=== PATIENT | male | born 1940 | race Caucasian/White ===

== ENCOUNTER 2019-01-02 10:22 | Inpatient (IN) ==
[2019-01-02] MEDS ORDERED: levETIRAcetam 1,500 MG in DEXTROSE 5% 100 ML IV STA (10:34)
[2019-01-02] MEDS ORDERED: SODIUM CHLORIDE 0.9% 1000ML 1,000 ML IV SCH (10:45)
[2019-01-02 10:50] LABS: Basophils # (auto) 0.03 K/uL (0-0.2); Basophils % (auto) 0.6 %; Hematocrit (blood only) 36.5 % (42-52); Hemoglobin 13.1 g/dL (14.0-18.0); Immature Granulocytes # (auto) 0.01 K/uL (0.00-0.02); Immature Granulocytes % (auto) 0.2 %; Lymphocytes # (auto) 0.41 K/uL (1.2-3.4); Lymphocytes % (auto) 8.3 %; Mean Corpuscular Hemoglobin 37.1 pg (25-34); Mean Corpuscular Hgb Conc 35.9 g/dL (32-36); Mean Corpuscular Volume 103.4 fL (80-100); Mean Platelet Volume 8.3 fL (7.4-10.4); Monocytes # (auto) 0.37 K/uL (0.11-0.59); Monocytes % (auto) 7.5 %; Neutrophils # (auto) 4.02 K/uL (1.4-6.5); Neutrophils % (auto) 81.4 %; Platelet Count 192 K/uL (130-400); RDW Coefficient of Variation 11.8 % (11.5-14.5); RDW Standard Deviation 44.3 fL (36.4-46.3); Red Blood Count 3.53 M/uL (4.7-6.1); White Blood Count 4.94 K/uL (4.8-10.8)
[2019-01-02] MEDS ORDERED: DEXAMETHASONE **PF** INJ 10 MG/ML VIAL IV ONE (11:08)
[2019-01-02 11:17] LABS: Alanine Aminotransferase 24 U/L (12-78); Aspartate Aminotransferase 14 U/L (15-37); BUN Creatinine Ratio 11.8 (10-20); Blood Urea Nitrogen 25 mg/dl (7-18); Calcium 9.4 mg/dl (8.5-10.1); Carbon Dioxide 24 mmol/L (21-32); Chloride 109 mmol/L (98-107); Est GFR (African American) 33.6; Glucose 149 mg/dl (70-99); Magnesium 2.1 mg/dl (1.8-2.4); Potassium 4.1 mmol/L (3.5-5.1); Sodium 142 mmol/L (136-145)
[2019-01-02 11:21] LABS: Albumin Globulin Ratio 1.1 (0.9-2); Alkaline Phosphatase 114 U/L (45-117); Bilirubin,Total 0.4 mg/dl (0.2-1); Creatine Kinase 53 U/L (39-308); Globulin 3.5 gm/dl (2.5-4.0); Total Protein 7.5 gm/dl (6.4-8.2)
--- NOTE | 2019-01-02 11:26 | CT Scan Report ---
CT head/brain wo con CLINICAL HISTORY: 78 years-old Male with Seizure w/ mass recent gamma ray. Acute seizure with report ed brain tumor. TECHNIQUE: Multiple axial CT images of the head were obtained without contrast. A dose lowering tech nique was utilized adhering to the principles of ALARA. CT DOSE: 537.48 mGy.cm COMPARISON: None. FINDINGS: No acute intracranial hemorrhage or midline shift. Age-related involutional changes with mild patchy white matter hypodensities suggestive of chronic microvascular ischemic disease. No hydrocephalus. Ce rebral vascular calcifications are noted. No acute territorial infarction identified. Postoperative c hanges from prior right temporal parietal craniotomy with 3 mm extra-axial collection adjacent to the operative bed which is likely on a postsurgical basis. Encephalomalacia is noted within the right pa rietal lobe. Ill-defined subtle hypodensities of the left cerebellar hemisphere may be on an artifact ual basis. No acute calvarial fracture. Mastoid air cells are clear. Paranasal sinuses are also generally clear. No suspicious bone lesions. The soft tissues and orbits appear unremarkable. IMPRESSION: 1. No acute intracranial hemorrhage or midline shift. 2. Postoperative changes from prior right temporoparietal craniotomy with encephalomalacia within the right parietal lobe, likely the site of prior resection. No definite intra-axial mass identified on this noncontrast study. 3. 3 mm extra-axial low attenuating collection adjacent to the operative bed is likely on a postopera tive basis. Correlate with prior imaging. The above report was generated using voice recognition software. It may contain grammatical, syntax o r spelling errors. Electronically signed by: Jeferson Callahan M.D. 01/02/2019 11:24 AM
[2019-01-02 13:18] LABS: Appearance Urine Clear (Clear); Bilirubin Urine Negative (Negative); Blood Urine Negative (Negative); Color Urine Yellow; Glucose Urine UA Negative (Negative); Ketones Urine Negative (Negative); Leukocyte Esterase Urine Negative (Negative); Nitrite Urine Negative (Negative); Protein Urine Negative (Negative); Specific Gravity Urine 1.009 (1.000-1.030); Urobilinogen Urine Negative (Negative)
--- NOTE | 2019-01-02 13:20 | History & Physical Report ---
Date of Service January 02, 2019 Assessment & Plan (1) Focal seizure: Pt received ativan 2mg x3 without success, seizure ultimately resolved s/p keppra dosing Improving slowly, which is c/w additional medication use per family ED physician spoke with pt's neuro-onc in [place] who recs for decadron 4mg BID[address] Dr. Bright who recs for keppra 750mg BID. does note that pt was on keppra initially but it made him very fatigued and he was titrated to lamictal, which he has had better success with. Seizure precautions, ativan PRN UA, utox pending CBC, PRP WNL (2) Glioblastoma: Bactrim prophylaxis use Finished chemo 10/2018 Recent gamma knife surgery, roughly 6 weeks ago (3) CKD (chronic kidney disease): Baseline cr 1.9-2.0 Cr 2.0 on admission (4) CAD (coronary artery disease): Hx of stents Aspirin 81mg (5) Hyperlipidemia: continue home meds (6) HTN (hypertension): continue home meds (7) DVT prophylaxis: Heparin for DVT proph History of Present Illness Primary Care Provider: MARGARITA PCP 78 y/o M who was brought to the ED by EMS for uncontrolled seizures. Pt is in town from [place], [place] visiting his son who lives in [place]. He and his flew here last Friday and have been staying in a hotel. He had been doing fine without any issues until later this morning when he started to note that as he was eating he was drooling out of the L side of his mouth. He then noted that his L UE/LE were tremoring. He called to his and shortly after had a full seizure. Pt had recent gamma knife surgery about 6 weeks ago for GBM. He has had issues with seizures since that time, but has been stable on lamictal. Due to this, pt has been prescribed PRN ativan. His gave him a 2mg dose and called EMS. This did not break his seizure. EMS gave him 2mg ativan x2 without breaking of seizure activity. Once at [facility], pt was given keppra and has had no further seizures. and son are present and state that he is much better than he was during the seizure, but that his speech is still slurred and slow compared with his usual. He is also still having an issue making a fist, but better than earlier. Prior to this episode today he had no issues. He had showered and gone about his usual morning without problem. states that since the surgery he has some L sided balance issues at baseline and this was no worse this AM prior to the seizures. Pt denies fever, SOB, chest pain, abd pain, n/v/c/d, LE pain or swelling. Family states he has been slow to return to baseline with ativan and keppra in the past and his current presentation is c/w these medications. ED physician spoke with pt's neuro-onc in [place] who recs for decadron 4mg BID. He also spoke with Dr. Bright who recs for keppra 750mg BID. does note that pt was on keppra initially but it made him very fatigued and he was titrated over to lamictal, which he has had better success with. Allergies Allergy/AdvReac Type Severity Reaction Status Date / Time No Known Allergies Allergy Unverified 01/02/19 11:20 Home Medications Home Medications Medication Instructions Recorded Confirmed Type Bifidobacterium infantis [Align] 4 mg PO QAM 01/02/19 01/02/19 History amlodipine 5 mg PO QAM 01/02/19 01/02/19 History aspirin 81 mg PO QAM 01/02/19 01/02/19 History lamotrigine [Lamictal] 100 mg PO BID 01/02/19 01/02/19 History lorazepam [Ativan] 1 - 2 mg PO DAILY PRN 01/02/19 01/02/19 History multivitamin 1 tab PO QAM 01/02/19 01/02/19 History rosuvastatin 10 mg PO QAM 01/02/19 01/02/19 History sulfamethoxazole-trimethoprim 1 tab PO HS 01/02/19 01/02/19 History [Bactrim] Past Med/Surg History Medical History Brain tumor (Acute) Surgical History No significant past surgical history Family History Brother Myocardial infarction Other No pertinent family history Social History Preferred Language: Portuguese marital status: Current Living Situation: Spouse current occupational status: 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 Feels Safe at Home: Yes Smoking Status: Never smoker Hx Alcohol Use: No Hx Substance Use: No Review of Systems Review of Systems: Pertinent positives and negatives reviewed in HPI--all others negative Physical Exam Constitutional: WD/WN, vitals as above Eyes: normal visual mchugh by confrontation and + anicteric sclerae Neck: normal visual inspection and trachea midline Respiratory: normal respiratory effort, lungs clear to auscultation Cardiovascular: Rate/Rhythm: regular rate and regular rhythm Gastrointestinal (Abdomen): Inspection/Auscultation: abdomen not distended Percussion/Palpation: abdomen soft; abdomen nontender Musculoskeletal: Head/Neck/Chest: normocephalic and head atraumatic negative for edema, peripheral pulses intact Skin: no rashes, warm and dry Neurologic: awake; not confused Speech / Cognition: + abnormal speech (slightly slurred and slow to respond at times) Answers are appropriate Psychiatric: Orientation: oriented x 3 and cooperative Affect: + blunted affect Results & Data Vital Signs (Past 12 Hours) Vital Signs Pulse Pulse Resp BP BP Pulse Ox 01/02/19 12:49 87 16 176/90 H 94 01/02/19 11:30 86 21 150/98 H 96 01/02/19 11:20 83 16 93 01/02/19 11:16 88 17 144/90 H 94 01/02/19 11:15 80 13 91 01/02/19 11:00 85 13 94 01/02/19 10:50 85 12 92 01/02/19 10:40 92 H 17 92 01/02/19 10:38 87 16 93 01/02/19 10:37 91 H 20 123/75 94 01/02/19 10:34 91 H 20 94 01/02/19 10:30 89 15 133/[address] head: changes c/w recent post-op status Code Status & VTE Plan Code Status Full code VTE Prophylaxis Plan VTE Prophylaxis will be ordered: Yes PG Care Time/CCT Total # of Minutes Spent Total Time Spent with Patient: Total time spent is greater than 50% in coordination of care (as documented) at patient's floor/unit and/or counseling patient:
--- NOTE | 2019-01-02 13:43 | Emergency Department Note ---
Entered by Summer Munroe acting as a scribe for Aakash Messer DO History of Present Illness General Chief complaint: Seizure Stated complaint: seizure Source: family ( and son) History of Present Illness Onset (ago): hour(s) (0800 this morning) Location: head and left (face, eye, arm) Pain Consistency: + other (episode (20 minutes)) Quality: + other (seizure) Associated symptoms: + other (Positive left face, eye, and arm twitching. Negative abdominal pain, recent falls. ); no chest pain The patient is a 78 year old male who presents to the ED with complaints of a seizure beginning at 0800 this morning. 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 His states this morning he had just taken a shower and was sitting down drinking water. She states around 0800, his left face and eye began twitching followed by his left arm twitching. His states this episode lasted about 20 minutes. His notes that 1 month ago he had a gamma ray treatment for regrowth. She reports he had 1 seizure like this before the gamma ray as well as a few other small, controlled seizures. She states he takes lamictal. Pt denies any chest pain, shortness of breath, belly pain, head pain, abdominal pain, recent falls. Home Medications Home Medications Medication Instructions Recorded Confirmed Type Bifidobacterium infantis [Align] 4 mg PO QAM 01/02/19 01/02/19 History amlodipine 5 mg PO QAM 01/02/19 01/02/19 History aspirin 81 mg PO QAM 01/02/19 01/02/19 History lamotrigine [Lamictal] 100 mg PO BID 01/02/19 01/02/19 History lorazepam [Ativan] 1 - 2 mg PO DAILY PRN 01/02/19 01/02/19 History multivitamin 1 tab PO QAM 01/02/19 01/02/19 History rosuvastatin 10 mg PO QAM 01/02/19 01/02/19 History sulfamethoxazole-trimethoprim 1 tab PO HS 01/02/19 01/02/19 History [Bactrim] Allergies Allergy/AdvReac Type Severity Reaction Status Date / Time No Known Allergies Allergy Unverified 01/02/19 11:20 Past Med/Surg History Medical History Brain tumor (Acute) Surgical History No significant past surgical history Family History Brother Myocardial infarction Other No pertinent family history Social History Preferred Language: [place] marital status: Current Living Situation: Spouse 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 and A total of 10 systems reviewed and were otherwise negative Physical Exam Vital Signs Vital Signs - 24 hr 01/02/19 10:30 01/02/19 10:34 01/02/19 10:37 Sepsis Recent Fever Within 48 Hours No Sepsis New/Unexplained Change in Mental Status No Sepsis Action Taken by Nursing No Action Required Pulse Rate 89 91 H 91 H Pulse Rate [Left Finger] Pulse Rate from SpO2 Sensor 89 Pulse Rhythm Regular Regular Pulse Strength Normal Respiratory Rate 15 20 20 Respiratory Effort / Characteristics Non-Labored Spontaneous Respiratory Depth Normal Respiratory Pattern Regular Blood Pressure 133/83 123/75 Blood Pressure [Left Arm] Blood Pressure Mean 99 91 Blood Pressure Mean [Left Arm] Blood Pressure Position Sitting Pulse Oximetry 92 94 94 Oxygen Delivery Method Room Air Room Air 01/02/19 10:38 01/02/19 10:40 01/02/19 10:50 Sepsis Recent Fever Within 48 Hours Sepsis New/Unexplained Change in Mental Status Sepsis Action Taken by Nursing Pulse Rate 87 92 H 85 Pulse Rate [Left Finger] Pulse Rate from SpO2 Sensor 87 93 H 85 Pulse Rhythm Pulse Strength Respiratory Rate 16 17 12 Respiratory Effort / Characteristics Respiratory Depth Respiratory Pattern Blood Pressure Blood Pressure [Left Arm] Blood Pressure Mean Blood Pressure Mean [Left Arm] Blood Pressure Position Pulse Oximetry 93 92 92 Oxygen Delivery Method 01/02/19 11:00 01/02/19 11:15 01/02/19 11:16 Sepsis Recent Fever Within 48 Hours Sepsis New/Unexplained Change in Mental Status Sepsis Action Taken by Nursing Pulse Rate 85 80 88 Pulse Rate [Left Finger] Pulse Rate from SpO2 Sensor 82 84 87 Pulse Rhythm Pulse Strength Respiratory Rate 13 13 17 Respiratory Effort / Characteristics Respiratory Depth Respiratory Pattern Blood Pressure 144/90 H Blood Pressure [Left Arm] Blood Pressure Mean 108 Blood Pressure Mean [Left Arm] Blood Pressure Position Pulse Oximetry 94 91 94 Oxygen Delivery Method 01/02/19 11:20 01/02/19 11:30 01/02/19 11:40 Sepsis Recent Fever Within 48 Hours Sepsis New/Unexplained Change in Mental Status Sepsis Action Taken by Nursing Pulse Rate 83 86 83 Pulse Rate [Left Finger] Pulse Rate from SpO2 Sensor 83 85 86 Pulse Rhythm Pulse Strength Respiratory Rate 16 21 18 Respiratory Effort / Characteristics Respiratory Depth Respiratory Pattern Blood Pressure 150/98 H Blood Pressure [Left Arm] Blood Pressure Mean 115 Blood Pressure Mean [Left Arm] Blood Pressure Position Pulse Oximetry 93 96 95 Oxygen Delivery Method 01/02/19 11:50 01/02/19 12:00 01/02/19 12:10 Sepsis Recent Fever Within 48 Hours Sepsis New/Unexplained Change in Mental Status Sepsis Action Taken by Nursing Pulse Rate 80 84 79 Pulse Rate [Left Finger] Pulse Rate from SpO2 Sensor 80 85 78 Pulse Rhythm Pulse Strength Respiratory Rate 16 13 20 Respiratory Effort / Characteristics Respiratory Depth Respiratory Pattern Blood Pressure 146/91 H Blood Pressure [Left Arm] Blood Pressure Mean 109 Blood Pressure Mean [Left Arm] Blood Pressure Position Pulse Oximetry 94 94 93 Oxygen Delivery Method 01/02/19 12:20 01/02/19 12:30 01/02/19 12:40 Sepsis Recent Fever Within 48 Hours Sepsis New/Unexplained Change in Mental Status Sepsis Action Taken by Nursing Pulse Rate 85 89 90 Pulse Rate [Left Finger] Pulse Rate from SpO2 Sensor 86 95 H 90 Pulse Rhythm Pulse Strength Respiratory Rate 16 19 20 Respiratory Effort / Characteristics Respiratory Depth Respiratory Pattern Blood Pressure 176/90 H Blood Pressure [Left Arm] Blood Pressure Mean 118 Blood Pressure Mean [Left Arm] Blood Pressure Position Pulse Oximetry 97 93 95 Oxygen Delivery Method 01/02/19 12:49 01/02/19 12:50 01/02/19 13:03 Sepsis Recent Fever Within 48 Hours Sepsis New/Unexplained Change in Mental Status Sepsis Action Taken by Nursing Pulse Rate 89 94 H Pulse Rate [Left Finger] 87 Pulse Rate from SpO2 Sensor 89 Pulse Rhythm Pulse Strength Respiratory Rate 16 14 16 Respiratory Effort / Characteristics Respiratory Depth Respiratory Pattern Blood Pressure Blood Pressure [Left Arm] 176/90 H Blood Pressure Mean Blood Pressure Mean [Left Arm] 118 Blood Pressure Position Pulse Oximetry 94 94 Oxygen Delivery Method Room Air 01/02/19 13:07 01/02/19 13:10 01/02/19 13:20 Sepsis Recent Fever Within 48 Hours Sepsis New/Unexplained Change in Mental Status Sepsis Action Taken by Nursing Pulse Rate 88 91 H 89 Pulse Rate [Left Finger] Pulse Rate from SpO2 Sensor 88 91 H 89 Pulse Rhythm Pulse Strength Respiratory Rate 12 16 11 L Respiratory Effort / Characteristics Respiratory Depth Respiratory Pattern Blood Pressure 162/87 H Blood Pressure [Left Arm] Blood Pressure Mean 112 Blood Pressure Mean [Left Arm] Blood Pressure Position Pulse Oximetry 95 98 96 Oxygen Delivery Method 01/02/19 13:30 01/02/19 13:40 Sepsis Recent Fever Within 48 Hours Sepsis New/Unexplained Change in Mental Status Sepsis Action Taken by Nursing Pulse Rate 94 H 96 H Pulse Rate [Left Finger] Pulse Rate from SpO2 Sensor 94 H 96 H Pulse Rhythm Pulse Strength Respiratory Rate 17 21 Respiratory Effort / Characteristics Respiratory Depth Respiratory Pattern Blood Pressure 165/106 H Blood Pressure [Left Arm] Blood Pressure Mean 125 Blood Pressure Mean [Left Arm] Blood Pressure Position Pulse Oximetry 95 93 Oxygen Delivery Method GENERAL: Sitting up in bed. Intermittent shaking/twitching of the left jaw. Able to mumble answers. EYE EXAM: normal conjunctiva, PERRL and EOM's grossly intact. Pupils 2 mm and r eactive with bilateral nystagmus. OROPHARYNX: Bite morel on right cheek and left distal tongue. NECK: supple, no nuchal rigidity, no adenopathy, non-tender LUNGS: Clear to auscultation. Normal chest wall mechanics HEART: no murmurs, S1 normal and S2 normal ABDOMEN: abdomen soft, non-tender, normo-active bowel sounds, no masses, no rebound or guarding. BACK: Back is symmetrical on inspection and there is no deformity, no midline tenderness, no CVA tenderness. SKIN: no rashes and no bruising UPPER EXTREMITIES: upper extremities are grossly normal. Left elbow with a fair amount of swelling. No surrounding erythema LOWER EXTREMITIES: No pitting edema. NEURO EXAM: Awake, alert, mumbling, moving all extremities but the LUE. With intermittent garbled speech Course ED COURSE: Vital signs were reviewed and showed hypertensive The patients medical record was reviewed The above diagnostic studies were performed and reviewed. ED treatments and interventions as stated above. 1028: The patient was evaluated in room A11. A complete history and physical examination was performed. 1103: I updated the nurse to take the patient to Ct. She states she was holding until the Kepra was done. 1215: Discussed the patient's case with Dr. Kriss Harden [facility] Hospitalist. The patient will be evaluated for further management. 1155: Upon reevaluation, the patient is doing slightly better. I discussed my findings with the patient and his family and they understand and agree with the treatment plan. Based on the patients age, coexisting illnesses, exam and lab findings the decision to treat as an inpatient was made. The patient remained stable while under my care. The patient will be evaluated for further management. Administered Medications Discontinued Medications Dexamethasone Sodium Phosphate (Decadron Pf) 4 mg IV NOW ONE Stop: 01/02/19 11:09 Last Admin: 01/02/19 11:28 Dose: 4 mg Documented by: [id number] Levetiracetam 1,500 mg/ (Dextrose) 115 mls @ 440 mls/hr IV NOW STA Stop: 01/02/19 10:48 Last Infusion: 01/02/19 11:15 Dose: 0 mls/hr Documented by: [id number] Admin: 01/02/19 10:55 Dose: 440 mls/hr Documented by: [id number] Sodium Chloride (Nss 1000ml) 1,000 mls @ 999 mls/hr IV .Q1H1M NAI Stop: 01/02/19 11:45 Last Infusion: 01/02/19 12:00 Dose: 0 mls/hr Documented by: [id number] Admin: 01/02/19 10:55 Dose: 999 mls/hr Documented by: [id number] Medical Decision Making Differential Diagnosis Differential Diagnosis includes but is not limited to ischemic Stroke, hemorrhagic stroke, bells palsy, mass, neoplasm, migraine headache, seizure, subarachnoid hemorrhage, TIA, and transient global amnesia. Medical Records Attestation: I reviewed the patient's medical records. Home Medications Current Medication List: was personally reviewed by me Laboratory Data Attestation: I reviewed the patient's lab results. Result diagrams: 01/02/19 10:39 01/02/19 10:39 Lab Results 01/02/19 01/02/19 01/02/19 Range/Units 10:39 10:39 13:00 WBC 4.94 (4.8-10.8) K/uL RBC 3.53 L (4.7-6.1) M/uL Hgb 13.1 L (14.0-18.0) g/dL Hct 36.5 L (42-52) % MCV 103.4 H (80-100) fL MCH 37.1 H (25-34) pg MCHC 35.9 (32-36) g/dL RDW Std Deviation 44.3 (36.4-46.3) fL RDW Coeff of Shania 11.8 (11.5-14.5) % Plt Count 192 (130-400) K/uL MPV 8.3 (7.4-10.4) fL Immature Gran % (Auto) 0.2 % Neut % (Auto) 81.4 % Lymph % (Auto) 8.3 % Gilchrist % (Auto) 7.5 % Eos % (Auto) 2.0 % Baso % (Auto) 0.6 % Immature Gran # (Auto) 0.01 (0.00-0.02) K/uL Neut # (Auto) 4.02 (1.4-6.5) K/uL Lymph # (Auto) 0.41 L (1.2-3.4) K/uL Gilchrist # (Auto) 0.37 (0.11-0.59) K/uL Eos # (Auto) 0.10 (0-0.5) K/uL Baso # (Auto) 0.03 (0-0.2) K/uL Sodium 142 (136-145) mmol/L Potassium 4.1 (3.5-5.1) mmol/L Chloride 109 H (98-107) mmol/L Carbon Dioxide 24 (21-32) mmol/L Anion Gap 9.0 (3-11) BUN 25 H (7-18) mg/dl Creatinine 2.09 H (0.6-1.4) mg/dl Est Cr Clr Drug Dosing Not Reportable Est GFR ( Amer) 33.6 Est GFR (Non-Af Amer) 29.0 BUN/Creatinine Ratio 11.8 (10-20) Glucose 149 H (70-99) mg/dl Calcium 9.4 (8.5-10.1) mg/dl Magnesium 2.1 (1.8-2.4) mg/dl Total Bilirubin 0.4 (0.2-1) mg/dl AST 14 L (15-37) U/L ALT 24 (12-78) U/L Alkaline Phosphatase 114 (45-117) U/L Total Creatine Kinase 53 (39-308) U/L Total Protein 7.5 (6.4-8.2) gm/dl Albumin 4.0 (3.4-5.0) gm/dl Globulin 3.5 (2.5-4.0) gm/dl Albumin/Globulin Ratio 1.1 (0.9-2) Urine Color Yellow Urine Appearance Clear (Clear) Urine pH 7.0 (4.5-7.5) Ur Specific [place] 1.009 (1.000-1.030) Urine Protein Negative (Negative) Urine Glucose (UA) Negative (Negative) Urine Ketones Negative (Negative) Urine Blood Negative (Negative) Urine Nitrite Negative (Negative) Urine Bilirubin Negative (Negative) Urine Urobilinogen Negative (Negative) Ur Leukocyte Esterase Negative (Negative) Imaging Data Radiologist's Impression: Radiology results as stated below per my review and the radiologist's interpretation: CT head/brain wo con CLINICAL HISTORY: 78 years-old Male with Seizure w/ mass recent gamma ray. Acute seizure with reported brain tumor. TECHNIQUE: Multiple axial CT images of the head were obtained without contrast. A dose lowering technique was utilized adhering to the principles of ALARA. CT DOSE: 537.48 mGy.cm COMPARISON: None. FINDINGS: No acute intracranial hemorrhage or midline shift. Age-related involutional changes with mild patchy white matter hypodensities suggestive of chronic microvascular ischemic disease. No hydrocephalus. Cerebral vascular calcifications are noted. No acute territorial infarction identified. Postoperative changes from prior right temporal parietal craniotomy with 3 mm extra-axial collection adjacent to the operative bed which is likely on a postsurgical basis. Encephalomalacia is noted within the right parietal lobe. Ill-defined subtle hypodensities of the left cerebellar hemisphere may be on an artifactual basis. No acute calvarial fracture. Mastoid air cells are clear. Paranasal sinuses are also generally clear. No suspicious bone lesions. The soft tissues and orbits appear unremarkable. IMPRESSION: 1. No acute intracranial hemorrhage or midline shift. 2. Postoperative changes from prior right temporoparietal craniotomy with encephalomalacia within the right parietal lobe, likely the site of prior resection. No definite intra-axial mass identified on this noncontrast study. 3. 3 mm extra-axial low attenuating collection adjacent to the operative bed is likely on a postoperative basis. Correlate with prior imaging. The above report was generated using voice recognition software. It may contain grammatical, syntax or spelling errors. Electronically signed by: Jeferson Callahan M.D. 01/02/2019 11:24 AM ECG Data Attestation: I personally reviewed and interpreted this ECG as follows: Indication: other (seizure) Rate (beats per minute): 91 Rhythm: sinus rhythm Findings: + other (normal intervals), + 1st degree AV block and + left axis deviation; no PVC Blood Pressure Blood Pressure Findings: Elevated blood pressure Blood Pressure Disposition: further management by hospitalist MDM Narrative Patient is an 78-year-old male with a past medical history of a GBM status post surgery and recent gamma knife within the past 1.5 months. Presents the ER with 45-minute seizure episode which was focal to twitching of left face as well as twitching of the left upper extremity. He was given a total of 6 mg IV Ativan prior to arrival. Upon arrival he still twitching and was given IV Keppra. Seizure stopped shortly after. Labs show no significant leukocytosis or anemia. BMP with a creatinine of 2 close to his baseline per . LFTs bilirubin was unremarkable. UA was negative. Tox negative. Discussed with his neuro oncologist who recommended 4 mg IV Decadron twice daily. Discussed with our neurologist who recommended Keppra 750 twice daily. Patient was already given a bolus dose of 150 mg of Keppra. Discussed with the hospitalist and the patient and the family. Throughout his stay in the ER he gradually had increased movement of that left upper extremity. Patient was admitted to the hospitalist for further work-up. Impression & Plan Focal seizure, Glioblastoma, Post-ictal state, LUE weakness Discharge Plan Visit Data Chief Complaint: Seizure Stated Complaint: seizure ED Provider: Aakash Messer Discharge Problem: Focal seizure, Glioblastoma, Post-ictal state, LUE weakness Patient Disposition: Being Evaluated by Hospitalist Forms Stand Alone Forms: [facility] Prescriptions Prescriptions: No Action multivitamin Tablet 1 tab PO QAM RF: 0 sulfamethoxazole-trimethoprim [Bactrim] 400-80 mg Tablet 1 tab PO HS RF: 0 amlodipine 5 mg Tablet 5 mg PO QAM RF: 0 aspirin 81 mg Tablet,Delayed Release (Dr/Ec) 81 mg PO QAM RF: 0 lorazepam [Ativan] 1 mg Tablet 1 - 2 mg PO DAILY PRN (Reason: Seizure Activity) RF: 0 lamotrigine [Lamictal] 100 mg Tablet 100 mg PO BID RF: 0 rosuvastatin 10 mg Tablet 10 mg PO QAM RF: 0 Align 4 mg Capsule 4 mg PO QAM RF: 0 Referrals Referrals: PCP,NO [Primary Care Provider] - The scribe's documentation has been prepared under my direction and personally reviewed by me in its entirety. I confirm that the note above accurately reflects all work, treatment, procedures, and medical decision making performed by me.
[2019-01-02 13:54] LABS: Amphetamines+Metham, Urine Neg (Neg); Barbiturates, Urine Neg (Neg); Benzodiazepine, Urine Neg (Neg); Cocaine, Urine Neg (Neg); MDMA (Ecstacy), Urine Neg (Neg); Methadone, Urine Neg (Neg); Opiate, Urine Neg (Neg); Phencyclidine, Urine Neg (Neg)
[2019-01-02] MEDS ORDERED: ACETAMINOPHEN 325 MG TAB PO PRN (14:50)
[2019-01-02] MEDS ORDERED: MAGNESIUM HYDROXIDE SUSP 30 ML UDC PO PRN (14:50)
[2019-01-02] MEDS ORDERED: LORazepam 1 MG TAB PO PRN (14:50)
[2019-01-02] MEDS ORDERED: LORazepam 0.25 MG/0.5 ML VIAL IV PRN (14:50)
[2019-01-02] MEDS ORDERED: ONDANSETRON INJ 2 MG/ML 2 ML VIAL IV PRN (14:50)
[2019-01-02] MEDS: HEPARIN SOD 5,000 UNIT/0.5 ML VIAL SQ SCH ×2 (15:41→21:43)
[2019-01-02] MEDS: lamoTRIgine 100 MG TAB PO SCH (20:52)
[2019-01-02] MEDS: DEXAMETHASONE SOD PHOSPHATE 4 MG in SYRINGE 0 ML IV SCH (20:52)
[2019-01-02] MEDS ORDERED: SULFA/TRIMETH 400/80MG TAB PO SCH (21:00)
[2019-01-02] MEDS: levETIRAcetam 750 MG in DEXTROSE 5% 100 ML IV SCH (21:37)
[2019-01-03] MEDS: HEPARIN SOD 5,000 UNIT/0.5 ML VIAL SQ SCH (05:43)
[2019-01-03 07:37] LABS: BUN Creatinine Ratio 13.8 (10-20); Blood Urea Nitrogen 27 mg/dl (7-18); Calcium 9.7 mg/dl (8.5-10.1); Carbon Dioxide 24 mmol/L (21-32); Chloride 109 mmol/L (98-107); Est GFR (African American) 36.4; Est GFR (Non-African American) 31.4; Glucose 140 mg/dl (70-99); Potassium 4.4 mmol/L (3.5-5.1); Sodium 141 mmol/L (136-145)
[2019-01-03] MEDS: lamoTRIgine 100 MG TAB PO SCH (08:51)
[2019-01-03] MEDS: DEXAMETHASONE SOD PHOSPHATE 4 MG in SYRINGE 0 ML IV SCH (08:54)
[2019-01-03] MEDS ORDERED: MULTIVITAMIN TAB PO SCH (09:00)
[2019-01-03] MEDS ORDERED: ROSUVASTATIN CALCIUM 10 MG TAB PO SCH (09:00)
[2019-01-03] MEDS ORDERED: ASPIRIN 81 MG ECTAB PO SCH (09:00)
[2019-01-03] MEDS ORDERED: AMLODIPINE BESYLATE 5 MG TAB PO SCH (09:00)
[2019-01-03] MEDS ORDERED: LACTOBACILLUS ACIDOPHILUS (FLORANEX) TAB PO SCH (09:00)
--- NOTE | 2019-01-03 10:00 | Neurology Consultation ---
Date of Consultation January 03, 2019 Assessment & Plan (1) Focal seizure: (2) Glioblastoma: (3) LUE weakness: This patient has a history of right frontoparietal glioblastoma resected in August of 2017 post radiation, Temodar therapy for 1 year, and most recently gamma knife radiation December 03, 2018. His tumor had some recurrence over the summer necessitating the gamma knife procedure. Patient has a history of focal/partial seizures from his tumor and surgery and had a breakthrough, somewhat prolonged, left facial partial seizure January 02. This occurred on Lamictal 100 milligrams twice a day which is not a very big dose for his size. He was given Decadron on the advice of his neuro oncologist who was called from the emergency room and started on Keppra. Today he is doing well with some slight focal weakness in the left upper extremity (which may actually be due to his previous surgery verses a left over postictal state). Otherwise he has no signs of encephalopathy or meningeal signs. Recommendations: 1. Discontinue levetiracetam. 2. Increase lamotrigine to 125 milligrams twice daily. Check a trough level in 2-3 weeks and titrate to therapeutic range, if needed 3. Continue Decadron 4 milligrams twice daily for now. 4. Increase activity as able today. 5. He will be returning to his neuro oncologist in [place] later this week. Overall, I spent a total of 105 minutes with this case including review of records, review of CT films, direct evaluation the patient at bedside, and discussion of the case with patient at bedside, his and son who are at bedside, the RN at bedside, and Dr. Ojeda, including differential diagnosis and treatment options. History of Present Illness Reason for Consultation: Patient is an 78-year-old, who I was asked to see the request of Dr. Harden, for neurologic consultation regarding seizures and history of glioma. Requesting Physician: Dr. Harden. Attending Physician: Honorio Ojeda History of Present Illness Patient has a history of coronary artery disease post stent 15 years ago, mild type 2 diabetes for which she is on no medication currently, intermittent hypertension and chronic kidney disease which he has had for the last 6 years. Most of this he manages through diet and exercise. His is at bedside who helps give history. In August of 2017, he had an episode of slurred speech and a CT scan of the head revealed a right frontoparietal tumor. He underwent surgery by Dr. Griffin Paige ([facility]) to remove as much of the tumor is possible. Following this he had focal radiation to that area lasting about 6 weeks (unsure of total dose). He was put on Temodar which he took for 1 year. Patient had a seizure during his initial evaluation and treatment but was not treated with medication. He was followed closely with MRIs and no tumor was recurring. In April of 2018 he had another seizure and was put on Keppra. This made him too sleepy, although it did stop seizures. He was switched over to Lamictal in the late spring. There was a concern that 100 milligrams b.i.d. of Lamictal was giving him tremors so it was decreased to 75 milligrams twice a day. He then had a left facial partial seizure in September of 2018 and he was put back up on 100 milligrams twice daily (where he has remained since). In October of 2018 he had a couple of mini seizures involving left jaw and cheek. As needed Ativan helped. He had no seizures in November. In August of 2018 an MRI showed possible growth verses radiation effect. By late October of 2018 there was a 1 centimeter area of probable tumor growth. On December 03 he received gamma knife surgery at [facility]. He has had no problems since until yesterday. The patient is flew in from [place] to visit their son in the [place] area. He got up yesterday morning , January 02, doing very well and he ate and got cleaned up/showered. Around 0930 he tried to drink water and he could not swallow and noticed that the left side of his face was repetitively twitching including the forehead cheek and jaw. This persisted for up until an hour. He had received some sublingual Ativan by his . He arrived at the emergency room on January 02 at 1030 with a temperature of 36.4, pulse 89, respiratory rate 15, blood pressure 133/83, and O2 saturation 92 percent. He was mumbling, had some garbled speech, and had weakness in the left upper extremity. He was given Ativan and a loading dose of Keppra. According to nursing staff and the patient's he has had no seizures since admission and did well overnight. He currently has no headache. His left upper extremity has some tremor. This morning blood pressure is 144/88 and he has no headache or cognitive problems, new vision problems, or new weakness or numbness of the limbs. His balance has been off but he got to the bathroom this morning well, using a walker. Allergies Allergy/AdvReac Type Severity Reaction Status Date / Time No Known Allergies Allergy Unverified 01/02/19 11:20 Home Medications Home Medications Medication Instructions Recorded Confirmed Type Bifidobacterium infantis [Align] 4 mg PO QAM 01/02/19 01/02/19 History amlodipine 5 mg PO QAM 01/02/19 01/02/19 History aspirin 81 mg PO QAM 01/02/19 01/02/19 History lamotrigine [Lamictal] 100 mg PO BID 01/02/19 01/02/19 History lorazepam [Ativan] 1 - 2 mg PO DAILY PRN 01/02/19 01/02/19 History multivitamin 1 tab PO QAM 01/02/19 01/02/19 History rosuvastatin 10 mg PO QAM 01/02/19 01/02/19 History sulfamethoxazole-trimethoprim 1 tab PO HS 01/02/19 01/02/19 History [Bactrim] Patient History Medical History Brain tumor (Acute) Chronic kidney disease Coronary artery disease Hypertension Surgical History H/O brain surgery No significant past surgical history Family History Brother Myocardial infarction Father , age 52 of an [place] Myocardial infarction Other No pertinent family history Social History Preferred Language: Swazi Communication Ability: Effective Wardrobe Manager Required: No Beliefs That Will Affect Care: None marital status: Current Living Situation: Spouse current occupational status: employed and retired 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 Feels Safe at Home: Yes Smoking Status: Never smoker Hx Alcohol Use: No Hx Substance Use: No Review of Systems Constitutional: + fatigue; no fever and no weakness Eyes: no diplopia, no eye pain and no worsening vision Ear, Nose, Mouth, Throat: no ear pain, no tinnitus, no hearing loss, no dizziness, no snoring, no hoarseness and no dysphagia Respiratory: no cough and no dyspnea Cardiovascular: no chest pain, no palpitations and no lightheadedness Gastrointestinal: no abdominal pain, no nausea and no vomiting Genitourinary: no dysuria and no urinary incontinence Musculoskeletal: no back pain, no neck pain, no radicular pain, no joint pain and no myalgia Integumentary: no rash and no lesions Neurologic: + localized weakness and + abnormal movements; no gait abnormality, no generalized weakness, no tingling, no numbness, no tremor(s), no headache(s), no abnormal speech, no confusion and no memory loss Psychiatric: no depression, no irritability, no anxiety, no difficulty concentrating, no confusion and no hallucinations Endocrine: no fatigue and no flushing Hematologic / Lymphatic: + easy bruising; no easy bleeding Allergy / Immunological: no urticaria and no problem reported Physical Exam Physical Exam: The patient is right-handed. The patient is awake, alert, and attentive. Speech is normal without any aphasia or dysarthria. he can name objects, repeat phrases, and has normal spontaneous speech. Mentation and thought processes are intact, with orientation to person, place and time, and normal fund of knowledge. Attention and concentration are normal. Mood and affect are normal and appropriate. General appearance and grooming are normal. Short and long-term memory are reasonably intact to conversation. The right disc is sharp with positive venous pulsation. The left disc is difficult to visualize due to cataract formation. Otherwise, there are no obvious exudates, hemorrhages, or blood vessel changes seen. Pupils are 3 mm bilaterally and reactive to light. Extraocular eye muscles are intact without nystagmus. Visual acuity and visual mchugh seem normal grossly to confrontation. There are no deficits to sensation in the face in all 3 distributions of the fifth cranial nerve bilaterally. Corneal reflexes are positive bilaterally. Facial strength and symmetry was normal bilaterally. Hearing seems normal to whisper and finger rub bilaterally. Palate moves well without asymmetry. There is normal sternocleidomastoid and trapezius (shoulder shrug) strength latosha aterally. Tongue is midline with good strength bilaterally. Neck has a full range of motion without discomfort. There are no cervical bruits bilaterally. There are no cranial or ocular bruits. Heart is without murmur. There is a regular rhythm and rate. Cervical, thoracic, and lumbar spine are nontender to palpation. Gait is narrow based, with some arm swing but he is very cautious and limps f avoring his left Jay. Balance is reasonable feet together eyes open. With outstretched arms there is perhaps a very slight drift on the left. There are no resting, postural, or action tremors, however, left upper extremity and hand will waiver some with certain activity. There is no ataxia with finger to nose testing. There is good facility in the right hand and slight decreased facility in the left hand. No other abnormal involuntary movements are noted. Motor strength is 5/5 diffusely in the right upper extremity including deltoids, biceps, triceps, brachioradialis, wrist flexors and extensors, industrial cafeteria manager, and intrinsic hand muscles. Left upper extremity was close to 5/5 but seem to be slightly weak in the hand. Motor strength is 5/5 diffusely in the legs bilaterally including hip flexors, quadriceps, hamstrings, gastrocnemius, tibialis anterior, tibialis posterior, and Peroneii muscles. Toe extensors are normal and there is good bulk in the extensor digitorum brevis muscles bilate rally. The limbs have good tone without rigidity or spasticity. There is no atrophy noted in the muscles. Muscle bulk is normal, there is no tenderness to palpation, no myotonia to percussion, and no fasciculations seen. Sensory examination is intact to touch and pin throughout all 4 limbs diffusely. Reflexes are 1/4 in the biceps, triceps, brachioradialis, quadriceps, and Achilles tendons bilaterally. There is no clonus bilaterally. Toes are downgoing with plantar stimulation bilaterally. Peripheral pulses are present and of normal quality distally in all 4 limbs. There is no peripheral edema noted in the limbs. Results & Data Vital Signs (Past 12 Hours) Vital Signs Temp Pulse Resp BP BP Pulse Ox 01/03/19 06:52 36.4 C L 88 20 148/88 H 97 01/03/19 04:35 36.6 C 83 18 138/80 95 01/02/19 23:44 36.6 C 91 H 18 116/[address] head/brain wo con CLINICAL HISTORY: 78 years-old Male with Seizure w/ mass recent gamma ray. Acute seizure with reported brain tumor. TECHNIQUE: Multiple axial CT images of the head were obtained without contrast. A dose lowering technique was utilized adhering to the principles of ALARA. CT DOSE: 537.48 mGy.cm COMPARISON: None. FINDINGS: No acute intracranial hemorrhage or midline shift. Age-related involutional changes with mild patchy white matter hypodensities suggestive of chronic microvascular ischemic disease. No hydrocephalus. Cerebral vascular calcifications are noted. No acute territorial infarction identified. Postoperative changes from prior right temporal parietal craniotomy with 3 mm extra-axial collection adjacent to the operative bed which is likely on a postsurgical basis. Encephalomalacia is noted within the right parietal lobe. Ill-defined subtle hypodensities of the left cerebellar hemisphere may be on an artifactual basis. No acute calvarial fracture. Mastoid air cells are clear. Paranasal sinuses are also generally clear. No suspicious bone lesions. The soft tissues and orbits appear unremarkable. IMPRESSION: 1. No acute intracranial hemorrhage or midline shift. 2. Postoperative changes from prior right temporoparietal craniotomy with encephalomalacia within the right parietal lobe, likely the site of prior resection. No definite intra-axial mass identified on this noncontrast study. 3. 3 mm extra-axial low attenuating collection adjacent to the operative bed is likely on a postoperative basis. Correlate with prior imaging. The above report was generated using voice recognition software. It may contain grammatical, syntax or spelling errors. Electronically signed by: Jeferson Callahan M.D. 01/02/2019 11:24 AM PG Care Time/CCT Total # of Minutes Spent Total Time Spent with Patient: Total time spent is greater than 50% in coordination of care (as documented) at patient's floor/unit and/or counseling patient:
[2019-01-03] MEDS: levETIRAcetam 750 MG in DEXTROSE 5% 100 ML IV SCH (10:02)
[2019-01-03] MEDS ORDERED: lamoTRIgine 25 MG TAB PO STA (10:24)
--- NOTE | 2019-01-03 14:50 | History & Physical Bridge Note ---
Date of Service January 03, 2019 History & Physical Bridge Note patient doing well today. no seizures since ER admission. telemetry normal overnight. has ambulated in hallways per nursing staff. has baseline mild left leg weakness. vitals and labs stable today. Cr of 1.9 is baseline for him. he has has hiccups - asks for antireflux meds for this (had hiccups in the past when he was on steroids). noted a little facial flushing since the steroids were started last pm. son, at bedside; questions answered. patient was seen by Dr Bright - neurology. ok to d/c today. he recommends increase in lamictal to 125mg BID and continue decadron 4mg BID as recommended by his physicians in [place]. PPI for GI prophylaxis and GERD. Myself and Dr Aakash Hart have independently reviewed this gentleman's chart. Patient does not meet medical necessity for acute inpatient status. Observation status is appropriate. Patient to d/c home today and f/u with his physicians upon return to [place] (leaving Friday of this week). Honorio Ojeda MD
--- NOTE | 2019-01-03 15:50 | Communication Note ---
Date of Service: January 03, 2019 Two physician review completed and patient does not meet medical necessity for acute inpatient. Observation status is appropriate.
--- NOTE | 2019-01-03 16:02 | Discharge Summary ---
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 Pt is in town from [place], [place] visiting his son who lives in [place]. He and his flew here last Friday and have been staying in a hotel. He had been doing fine without any issues until later this morning when he started to note that as he was eating he was drooling out of the L side of his mouth. He then noted that his L UE/LE were tremoring. He called to his and shortly after had a focal seizure mainly involving the left arm. Pt had recent gamma knife surgery about 6 weeks ago for GBM. He has had issues with seizures since that time, but has been stable on lamictal. Due to this, pt has been prescribed PRN ativan. His gave him a 2mg dose and called EMS. This did not break his seizure. EMS gave him 2mg ativan x2 without breaking of seizure activity. Once at [facility], pt was given a loading dose of keppra and has had no further seizures. and son are present and state that he is much better than he was during the seizure, but that his speech is still slurred and slow compared with his usual. He is also still having an issue making a fist, but better than earlier. Prior to this episode today he had no issues. He had showered and gone about his usual morning without problem. states that since the surgery he has some L sided balance issues at baseline and this was no worse this AM prior to the seizures. Pt denies fever, SOB, chest pain, abd pain, n/v/c/d, LE pain or swelling. Family states he has been slow to return to baseline with ativan and keppra in the past and his current presentation is c/w these medications. ED physician spoke with pt's neuro-oncologist in [place] who recommended decadron 4mg BID. He also spoke with Dr. Bright who recommended keppra 750mg BID. does note that pt was on keppra initially but it made him very fatigued and he was titrated over to lamictal, which he has had better success with. Principal Diagnosis focal seizures in setting of a known right-sided frontoparietal glioblastoma Discharge Exam Constitutional well developed, well nourished and average body habitus; no acute distress and no altered mental status having hiccups Eyes minimal bletharitis left eyelids ENMT external ear and nose normal, oropharynx normal Respiratory normal respiratory effort, lungs clear to auscultation Cardiovascular Rate/Rhythm: regular rate and regular rhythm Heart Sounds: normal S1, normal S2 and + murmur (1-2/6 LLSB) Vessels: posterior tibial pulses present and dorsalis pedis pulses present; no JVD Extremities: no edema Gastrointestinal (Abdomen) normal bowel sounds, soft, nontender, no hepatosplenomegaly Musculoskeletal left elbow olecrenon bursal swelling c/w bursitis Neurologic + focal motor deficit (mild weakness LUE; scant weakness LLE; RUE/RLE strength 5/5) and awake; not confused Speech / Cognition: normal speech Motor/Sensory: no tremor Psychiatric Orientation: alert and oriented x 3 Discharge Data Allergies Allergy/AdvReac Type Severity Reaction Status Date / Time No Known Allergies Allergy Unverified 01/02/19 11:20 Consultations [facility] - Renato Bright MD Ordered Studies CT head: IMPRESSION: 1. No acute intracranial hemorrhage or midline shift. 2. Postoperative changes from prior right temporoparietal craniotomy with encephalomalacia within the right parietal lobe, likely the site of prior resection. No definite intra-axial mass identified on this noncontrast study. 3. 3 mm extra-axial low attenuating collection adjacent to the operative bed is likely on a postoperative basis. Correlate with prior imaging. Hospital Course (1) Focal seizure: Focal seizures involving primarily the left arm at time of presentation. Patient received ativan 2mg x 3 without stopping his seizures. Focal seizures ultimately resolved s/p keppra load in the emergency department at [facility]. CT head showed what appeared to be stable findings of the right parietal region which is the site of his glioblastoma (see dedicated CT head report). ED physician at [facility] spoke with pt's neuro-oncologist in [place] who recommended decadron 4mg BID. There was no evidence of metabolic disturbance, infectious process, electrolyte abnormality, etc at time of admission that could have contributed to his seizures. The patient was admitted for observation and had no further focal seizures. Speech and neurological exam returned to baseline. He was continued on the decadron 4mg BID. He was seen in consult by Dr Renato Bright, [facility]. Although keppra was given in the ER with ultimate successful cessation of the seizures he had had side effects from this medication in the past. Thus, instead of re-initiating the keppra, Dr Bright advised INCREASING the lamictal to 125mg TWICE DAILY. He will need a lamictal level in about 2 weeks post-discharge. The patient was counseled to follow-up with his neuro-oncologist upon return to [place]. Thus, the following were advised at discharge: 1. lamictal 125mg BID 2. decadron 4mg BID A CD-ROM copy of the CT head was given to the patient at discharge. (2) Glioblastoma: RIGHT-sided, frontoparietal region. Remains on bactrim prophylaxis. Finished chemo 10/2018. Recent gamma knife surgery, roughly 6 weeks ago, in [place] for local recurrence of tumor. See dedicated CT head report for CT head findings at [facility]. (3) CKD (chronic kidney disease): Baseline cr 1.9-2.0 -- stage 3 CKD. Cr 2.0 on admission and 1.9 on day of discharge. Caution with use of bactrim prophylaxis due to higher risk of hyperkalemia. (4) CAD (coronary artery disease): Hx of stents (LAD). Cont Aspirin 81mg. Cont statin. (5) Hyperlipidemia: continue statin agent (6) HTN (hypertension): continue home meds BPs acceptable while hospitalized (7) Blepharitis of eyelid of left eye: minimal erythromycin eye ointment at HS prescription given at discharge (8) GERD (gastroesophageal reflux disease): In light of decadron use, hiccups, and reflux symptoms he was initiated on omeprazole 40mg once daily. (9) Effusion of left olecranon bursa: Present for several weeks in the setting of trauma to the left elbow. Steroids for glioblastoma may help the effusion. Reported no significant pain or loss of function despite the bursitis/effusion. f/u with PCP upon return to [place]. (10) Ambulatory dysfunction: Due to left-sided dysfunction from brain tumor. Given prescription for rolling walker at discharge. Total Time Total Time Spent Total Time Spent (In Minutes): 45 Total Time Includes: Examination of the Patient, Discharge Planning, Medication Reconciliation and Communication With Other Providers (Dr Renato Bright ) Discharge Plan Discharge Items Patient Disposition: Home - Self-Care Reason For Visit: SEIZURES Discharge Diagnosis: 1. seizures - improved. 2. hiccups - likely due to reflux. 3. chronic kidney disease. 4. glioma. Goals: 1. stop the seizures 2. improve the hiccups Activity: As commented below Activity Comment: no swimming or tub baths Bathing Comment: no tub baths; showers are ok as long as you are supervised Exercise/Sports: Wait until after follow-up appointment Driving/Machine Use: no driving unless cleared by your neurologist in [place] Non-emergency contact: Primary Care Provider and Neurologist Call non-emergency contact if: you have any medication questions, your symptoms worsen and you have a fever Follow-up/Referrals: PCP,NO [Primary Care Provider] - Diet: Heart Healthy and Vegetarian (Lacto-Ovo) Addtl Attending Provider Instructions: You were seen at [facility] for focal seizures involving your left arm. They finally resolved after treatment in the ER. Your CAT scan did not show any blood or obvious stroke. Your blood work was stable/acceptable; your creatinine (kidney function level) was 1.9 while hospitalized. You were seen by Dr Renato Bright, [facility], who recommended increasing your lamictal to 125mg twice a day. Your physicians in [place] also recommended starting you on decadron 4mg twice a day. Following admission your telemetry monitoring was normal, your labs were stable, and you did not have any further seizures. Recommendations: 1. decadron (dexamethasone) 4mg twice a day - prescription called to [facility]. 2. lamictal - increase the dose to 125mg twice a day. Prescription for the 25mg tabs sent to [facility] for you. 3. omeprazole 40mg once every morning for reflux and prevention of stomach upset from the steroids. Prescription sent to [facility] for your. 4. erythromycin eye ointment - apply to left eye at bedtime. Prescription called to [facility]. 5. prescription for rolling walker was printed for you if you desire to use one . 6. on your airplane flight back to [place] please stretch your legs frequently, go for short walks on-board (if possible), etc. This is important for prevention of blood clots in your legs. follow-up -- please see your family doctor AND your neurologist upon return to [place]. Preferably THIS WEEK. Return to [facility] or any hospital if -- * you experience recurrent seizures * you have shortness of breath or chest pain * you experience dizziness or lightheadedness * you have fevers over 100.5 degrees * any other concerns Pending Studies at Discharge: No Stand-Alone Forms: [facility] Medications and DC Order Prescriptions: New lamotrigine [Lamictal] 25 mg Tablet 25 mg PO BID Qty: 60 RF: 2 dexamethasone [Decadron] 4 mg tablet 4 mg PO BID Qty: 30 RF: 0 erythromycin 5 mg/gram (0.5 %) ointment 1 appln OP HS Qty: 84 RF: 0 omeprazole 40 mg capsule,delayed release(DR/EC) 40 mg PO QAM Qty: 30 RF: 2 walker misc .ROUTE .MEDSUPPLY Qty: 1 RF: 0 Continued multivitamin Tablet 1 tab PO QAM RF: 0 sulfamethoxazole-trimethoprim [Bactrim] 400-80 mg Tablet 1 tab PO HS RF: 0 amlodipine 5 mg Tablet 5 mg PO QAM RF: 0 aspirin 81 mg Tablet,Delayed Release (Dr/Ec) 81 mg PO QAM RF: 0 lorazepam [Ativan] 1 mg Tablet 1 - 2 mg PO DAILY PRN (Reason: Seizure Activity) RF: 0 lamotrigine [Lamictal] 100 mg Tablet 100 mg PO BID RF: 0 rosuvastatin 10 mg Tablet 10 mg PO QAM RF: 0 Align 4 mg Capsule 4 mg PO QAM RF: 0 Discharge Orders: Discharge Order (Routine); Ordered 01/03/19 Ordered By: Honorio Ojeda Admission Data Admit Date/Time: 01/02/19 13:08 Attending Provider: Honorio Ojeda Admit Provider: Kriss Harden Primary Care Provider: PCP,NO Other Providers: Kriss Harden Emile Pierre III Other Interventions: Discharge Summary Assessment (RN) Last Done: 01/03/19 14:14 DC Date/Time DO NOT enter until pt leaves facility: 01/03/19 16:10
[2019-01-03] MEDS ORDERED: lamoTRIgine 100 MG TAB PO SCH (21:00)
[2019-01-03] MEDS ORDERED: lamoTRIgine 25 MG TAB PO SCH (21:00)
== END 2019-01-03 16:10 | disposition home or self-care (01) | DRG 101 ==
LOC: ED 10:22 → 2S 13:08 → SUATTDRO 13:08 → 2S 13:44